=== PATIENT | male | born 2000 | race Two or more races ===

== ENCOUNTER 2024-12-01 12:38 | Emergency (ER) | payer OTHER ==
[~2024-12-01] VITALS: Ht 172.7 cm; Wt 59.0 kg
[~2024-12-01 12:38] MED LIST: PEPCID AC20 MG PO; ZOFRAN8 MG PO
[2024-12-01 12:49] VITALS: BP 104/71; O2SAT 100
[2024-12-01] MEDS ORDERED: FAMOtidine 10 MG/ML (4ML VIAL) IV ONE (13:30)
[2024-12-01] MEDS ORDERED: OSELTAMIVIR PHOSPHATE 75 MG CAPSULE PO ONE (13:30)
[2024-12-01] MEDS ORDERED: OSEL75CA PO (15:49)
[2024-12-01] MEDS ORDERED: PEPCID AC20 MG PO (15:49)
== END 2024-12-01 16:15 | disposition home or self-care (01) ==
LOC: ER 12:38
PROVIDERS: General Practice
DX: J10.1 Influenza due to other identified influenza virus with other respiratory manifestations (principal); Z91.018 Allergy to other foods